=== PATIENT | female | born 1985 | race Caucasian/White ===

== ENCOUNTER 2024-06-27 14:28 | Emergency (ER) | payer OTHER ==
[2024-06-27 14:40] VITALS: BP 119/79; PULSE 87; RESP 18; TEMP 98.3; BMI 28.7
[2024-06-27] MEDS ORDERED: IBUPROFEN 600 MG TABLET (FP) PO ONE (16:13)
[2024-06-27] MEDS ORDERED: LIDOCAINE 5% TOPICAL PATCH ONE (16:14)
[2024-06-27] MEDS: IBUPROFEN 600 MG TABLET (FP) PO ONE (16:16)
[2024-06-27] MEDS: LIDOCAINE 5% TOPICAL PATCH TP ONE (16:16)
[2024-06-27 16:18] LABS: EPI CELLS 6 /uL (0-25.1); HYALINE CASTS 0 /uL (0-3.1); URINE APPEARANCE CLEAR; URINE BACTERIA 2236 /uL (0-1359); URINE BILIRUBIN NEGATIVE (NEGATIVE); URINE COLOR YELLOW; URINE GLUCOSE (UA) NEGATIVE (NEGATIVE); URINE KETONE NEGATIVE (NEGATIVE); URINE LEUK ESTERASE NEGATIVE (NEGATIVE); URINE NITRITE NEGATIVE (NEGATIVE); URINE PROTEIN NEGATIVE (NEGATIVE); URINE RBC 137 /uL (0-23.9); URINE UROBILINOGEN 0.2 mg/dL (0.2-1.0); URINE WBC 9 /uL (0-25.8)
[2024-06-27 17:59] LABS: BASO % 0.3 % (0-2.0); EOS % 1.7 % (0-4.5); HEMOGLOBIN 12.6 GM/dL (10.7-15.3); LYMPH % 20.8 % (8-40); MCH 28.1 pg (25.7-33.7); MCHC 33.3 g/dl (32.0-36.0); MEAN CELL VOLUME 84.6 fl (80-96); MEAN PLT VOLUME 7.4 fl (7.5-11.1); MONO % 5.5 % (3.8-10.2); NEUT % 71.7 % (42.8-82.8); PLATELET COUNT 300 10^3/uL (134-434); RDW 14.4 % (11.6-15.6); WHITE BLOOD COUNT 12.1 K/mm3 (4.0-10.0)
[2024-06-27 18:28] LABS: POTASSIUM 4.1 mmol/L (3.5-5.1)
[2024-06-27 18:30] LABS: CALCIUM 8.7 mg/dL (8.5-10.1)
[2024-06-27 18:31] LABS: ALBUMIN 3.9 g/dl (3.4-5.0); BLOOD UREA NITROGEN 19.5 mg/dL (7-18)
[2024-06-27 18:34] LABS: CREATININE 0.7 mg/dL (0.55-1.3)
[2024-06-27 18:35] LABS: BILIRUBIN,TOTAL 0.2 mg/dL (0.2-1); TOT PROT 7.6 g/dl (6.4-8.2)
[2024-06-27] MEDS ORDERED: LIDOCAINE PATCH REMOVAL MC SCH (22:00)
== END 2024-06-27 20:49 | disposition home or self-care (01) ==
LOC: JERFT 14:28
DX: M54.6 Pain in thoracic spine (principal); M54.2 Cervicalgia
CPT/HCPCS: 36415; 72050-TC-FY; 72070-TC-FY; 72100-TC-FY; 74177-TC; 80053; 81003; 84703; 85025; 87086; 87186; 99285-25